=== PATIENT | male | born 1990 | race Caucasian/White ===

== ENCOUNTER 2021-03-21 06:44 | Inpatient (IN) | payer SELFPAY ==
[~2021-03-21] VITALS: Ht 182.9 cm; Wt 90.7 kg
--- NOTE | 2021-03-21 07:25 | NUR ---
DAIN Gonzales in tent examining patient.
[2021-03-21 07:37] VITALS: BP_SYST 112
--- NOTE | 2021-03-21 07:37 | NUR ---
Pt. bib girlfriend with N/V since 1am and abd. cramping, emesis is dark brown, pt. states is a daily pot smoker and has had this happen before where IVF and meds were required in ER in [place]
[2021-03-21] MEDS ORDERED: ONDANSETRON HCL 4 MG/2 ML VIAL IVP ONE ×2 (08:15→08:30)
[2021-03-21] MEDS ORDERED: NACL 0.9% 1,000 ML IV ONE (08:15)
[2021-03-21] MEDS ORDERED: ONDANSETRON HCL 4 MG/2 ML VIAL ONE (08:17)
[2021-03-21] MEDS ORDERED: MAG HYDROX/AL HYDROX/SIMETH 30 ML, LIDOCAINE VISCOUS 2% 15ML (PO) 15 ML, DICYCLOMINE HC... PO ONE ×3 (08:30)
[2021-03-21] MEDS ORDERED: NACL 0.9% 1,000 ML IV SCH ×2 (08:30→11:45)
[2021-03-21 09:52] LABS: BASOPHILS # (AUTO) 0.1 K/uL (0.0-0.2); BASOPHILS % (AUTO) 0.3 % (0.0-2.0); EOSINOPHILS % (AUTO) 0.1 % (0.0-4.0); HEMATOCRIT 41.1 % (36-54); HEMOGLOBIN 14.1 g/dL (14.0-18.0); LYMPHOCYTES # (AUTO) 0.7 K/uL (1.0-5.5); LYMPHOCYTES % (AUTO) 4.3 % (20.5-51.5); MEAN CORPUSCULAR HEMOGLOBIN 29 pg (27-31); MEAN CORPUSCULAR HGB CONC 34 % (32-36); MEAN CORPUSCULAR VOLUME 85 fL (79.0-98.0); MONOCYTES # (AUTO) 0.7 K/uL (0.0-1.0); MONOCYTES % (AUTO) 4.6 % (1.7-9.3); NEUTROPHILS # (AUTO) 13.9 K/uL (1.8-7.7); NEUTROPHILS % (AUTO) 90.7 % (40.0-70.0); PLATELET COUNT (AUTO) 193 K/uL (130-430); RED BLOOD CELL COUNT(AUTO) 4.81 MIL/uL (4.2-6.2); RED CELL DISTRIBUTION WIDTH 12.9 % (9.0-15.0); WHITE BLOOD COUNT (AUTO) 15.4 K/uL (4.8-10.8)
[2021-03-21 10:05] LABS: CALCIUM 9.2 mg/dL (8.4-11.0); CREATININE 0.92 mg/dL (0.55-1.30); POTASSIUM 4.4 mmol/L (3.5-5.1)
[2021-03-21 10:10] LABS: ALBUMIN 4.4 g/dL (3.4-4.8); TOTAL BILIRUBIN 0.5 mg/dL (0.0-1.0)
[2021-03-21] MEDS ORDERED: PANTOPRAZOLE SODIUM 80 MG in NS 100 ML IVP ONE (10:45)
[2021-03-21] MEDS ORDERED: PANTOPRAZOLE SODIUM 40 MG in NS 50 ML IV SCH (10:45)
[2021-03-21] MEDS ORDERED: PROCHLORPERAZINE EDISYLATE 10 MG/2 ML VIAL IVP ONE (10:45)
[2021-03-21 10:48] LABS: PROTHROMBIN TIME 10.8 SECS (9.5-12.5)
[2021-03-21] MEDS ORDERED: PANTOPRAZOLE SODIUM 40 MG/VIAL (PROTONIX) ONE ×2 (11:16)
--- NOTE | 2021-03-21 11:40 | NUR ---
Report to Lars to assume care, spoke with Dr Lock orders rec'd for In pt.
[2021-03-21] MEDS ORDERED: ONDANSETRON HCL 4 MG/2 ML VIAL IVP PRN (11:45)
[2021-03-21] MEDS ORDERED: HALOPERIDOL LACTATE 5 MG/ML VIAL IVP ONE (11:45)
[2021-03-21 12:49] LABS: HEMATOCRIT 40.9 % (36-54); HEMOGLOBIN 13.9 g/dL (14.0-18.0); MEAN CORPUSCULAR HEMOGLOBIN 29 pg (27-31); MEAN CORPUSCULAR HGB CONC 34 % (32-36); MEAN CORPUSCULAR VOLUME 86 fL (79.0-98.0); PLATELET COUNT (AUTO) 191 K/uL (130-430); RED BLOOD CELL COUNT(AUTO) 4.76 MIL/uL (4.2-6.2); RED CELL DISTRIBUTION WIDTH 12.9 % (9.0-15.0); WHITE BLOOD COUNT (AUTO) 12.8 K/uL (4.8-10.8)
--- NOTE | 2021-03-21 12:57 | NUR ---
Josh gastelum in [facility] - 03/21/21 at 1258 by THOMAS REPORT GIVEN TO MARINO
--- NOTE | 2021-03-21 13:00 | NUR ---
ADMISSION NOTE Received patient from ER via gurney. Patient admitted with diagnosis of UPPER GI BLEED. Patient is awake, alert, oriented X 4. Patient oriented to hospital room, call light, toileting, pain management and safety-teach back done. Patient informed that Capri Salmon will be her registered nurse and that their room number is [address]. Personal belongings checked and Belongings List documented. Call light within reach.
--- NOTE | 2021-03-21 13:17 | NUR ---
ADMITTED TO [address]. REPORT TO SAHARA. NO DISTRESS UPON DISCHARGE FROM ER. IV FLUIDS RUNNING 125ML/HR NS AND PROTONIX GTT 10ML/HR. BELONGINGS TRANSFERRED WITH PATIENT. ADMITTING MD DE SOUZA, CONSULT SANTA, PENDING GI WORKUP. NO HEMATEMESIS SINCE ASSUMPTION OF CARE. MINOR NAUSEA
[2021-03-21 13:30] VITALS: BP_SYST 118
--- NOTE | 2021-03-21 15:56 | NUR ---
ATTENDING MD DR DE SOUZA WAS CALLED RE: TO NOTIFY HIM THAT PT DECIDED TO GO AMA. LEFT A MESSAGE ON HIS CELL PHONE.
--- NOTE | 2021-03-21 16:00 | NUR ---
CONSULTATION PAGED/CALLED Reason for Consultation: [] BLOODY EMESIS Person Who was Notified: [] CINDY Consulting Physician: [] DR LÓPEZ,A Tile Mason Specialty: [] GI Ordering Physician: [] DR DE SOUZA
--- NOTE | 2021-03-21 16:30 | NUR ---
AMA: Patient does not wish to proceed with medical care recommended by Dr. Lock. Patient given information related to possible complications, up to and including , which could occur as a result of leaving hospital at this time. Patient verbalizes understanding of risks involved leaving against medical advice. Patient has signed AMA form. Patient denies any suicidal thoughts or ideation. Dr. Lock paged an left message. Nursing supervisor [facility] informed. Dr. Ortiz saw patient. Patient is ambulatory and escorted bu [facility].
== END 2021-03-21 16:30 | disposition left against medical advice (07) | DRG 368 ==
LOC: SED 06:44 → STU 11:41
PROVIDERS: ADMIT Internal Medicine; ATTEND Internal Medicine
DX: K21.01 Gastro-esophageal reflux disease with esophagitis, with bleeding (principal); K29.71 Gastritis, unspecified, with bleeding; Z53.29 Procedure and treatment not carried out because of patient's decision for other reasons; F12.90 Cannabis use, unspecified, uncomplicated; Z20.822 Contact with and (suspected) exposure to COVID-19; R11.15 Cyclical vomiting syndrome unrelated to migraine
CPT/HCPCS: 36415; 80053; 82272; 83051; 83690; 85014; 85025; 85048; 85049-TC; 85610-TC; 86886; 86900; 86901; C9113; G0378; J0780; J2001; J2405